=== PATIENT | male | born 1960 | race Caucasian/White ===

== ENCOUNTER 2016-05-06 14:54 | Emergency (ER) | payer OTHER ==
--- NOTE | 2016-05-06 16:42 | EDDOCDS ---
Physician Documentation [facility] Name: Ambrosio King Age: 55 yrs Sex: Male : 1960 Arrival Date: 05/06/2016 Time: 14:54 Bed Triage 2 Private MD: Corby Mendes Disposition: 05/06/16 16:34 Discharged to Home/Self Care. Impression: Edema, unspecified - OF PENIS. - Condition is Stable. - Discharge Instructions: Balanitis, Edema. - Medication Reconciliation, Local Pharmacy Hours form. - Follow up: Bennett Alvarenga; When: Call to arrange an appointment; Reason: Recheck today's complaints, Continuance of care. - Problem is new. - Symptoms are unchanged. Historical: - Allergies: No known drug Allergies; - Home Meds: 1. Cialis oral oral Unknown as needed (Last dose: 05/05/2016) 2. calcium carbonate 1,000 mg oral tab daily 3. magnesium oxide 400 mg Oral tab 4. zinc 25 mg 5. metformin 1,000 mg Oral tab 2 times per day 2 pills in PM 6. Onglyza 5 mg oral tab 1 tab once daily 7. carisoprodol 350 mg Oral tab 2 tab 8. Chantix Oral 1 tab 2 times per day - PMHx: Erectile Dysfunction; Diabetes - NIDDM: controlled; Chronic Back pain; - PSHx: Vasectomy; - Social history: Smoking status: Chewing Tobacco No barriers to communication noted, The patient speaks fluent Japanese, Speaks appropriately for age, Preferred Language: Japanese. - Family history: Not pertinent. - : The pt / caregiver states he / she is not on anticoagulants. Home medication list is obtained from the patient. - Exposure Risk Screening:: None identified. Vital Signs: 05/06 14:56 BP 149 / 93; Pulse 89; Resp 16; Temp 97.6(O); Pulse Ox 100% ; Weight 93.89 kg / 206.99 cmb lbs; Height 6 ft. 0 in. (182.88 cm); Pain 0/10; 14:56 Body Mass Index 28.07 (93.89 kg, 182.88 cm) cmb MDM: 16:37 Financial registration complete. Signatures: Karlie Olsen, Joe Diaz Tati So RN RN kr3 Kasie Nguyễn RN RN lf1 Bahman Sanchez, THI PA mo1 MTDD
--- NOTE | 2016-05-06 16:42 | EDDOCDS ---
Nurse's Notes [facility] Name: Ambrosio King Age: 55 yrs Sex: Male : 1960 Arrival Date: 05/06/2016 Time: 14:54 Bed Triage 2 Private MD: Corby Mendes Diagnosis: Edema, unspecified-OF PENIS Presentation: 05/06 15:08 Presenting complaint: Patient states: Swelling in penis that began at the base and is lf1 now moved to the sides. Pt. reports swelling began Thursday night and is not painful, pt. reports that he is unsure if swelling extends into the testicles or not. Pt reports that he takes medication for erectile dysfuction (Cialis) but that he isn't sure if he used any prior, and that this doesn't look to him like a priapism. Adult Sepsis Screening: The patient does not have new or worsening altered mentation. Patient's respiratory rate is less than 22. Systolic blood pressure is greater than 100. Patient has a qSOFA score of 0- Negative Sepsis Screen. Suicide/Homicide risk assessment- the patient denies having any suicidal and/or homicidal ideations and does not present with any other emotional, behavioral or mental health complaints. 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 Transition of care: patient was not received from another setting of care. 15:08 Acuity: MIESHA Level 3 lf1 15:08 Method Of Arrival: Walkin/Carried/Asstd lf1 Triage Assessment: 15:16 General: Appears in no apparent distress, comfortable, Behavior is cooperative. Pain: lf1 Denies pain. HIV screening NA for this visit Offered previously. Neurological: Level of Consciousness is awake, alert, Oriented to person, place, time. Cardiovascular: Chest pain is denied. Respiratory: Respiratory effort is even, unlabored. GI: Denies nausea, vomiting. : Denies burning with urination, Pt reports penile swelling. Historical: - Allergies: No known drug Allergies; - Home Meds: 1. Cialis oral oral Unknown as needed (Last dose: 05/05/2016) 2. calcium carbonate 1,000 mg oral tab daily 3. magnesium oxide 400 mg Oral tab 4. zinc 25 mg 5. metformin 1,000 mg Oral tab 2 times per day 2 pills in PM 6. Onglyza 5 mg oral tab 1 tab once daily 7. carisoprodol 350 mg Oral tab 2 tab 8. Chantix Oral 1 tab 2 times per day - PMHx: Erectile Dysfunction; Diabetes - NIDDM: controlled; Chronic Back pain; - PSHx: Vasectomy; - Social history: Smoking status: Chewing Tobacco No barriers to communication noted, The patient speaks fluent [place], Speaks appropriately for age, Preferred Language: [place]. - Family history: Not pertinent. - : The pt / caregiver states he / she is not on anticoagulants. Home medication list is obtained from the patient. - Exposure Risk Screening:: None identified. Screenin:17 Screening information is obtained from the patient. Fall risk: No risks identified. lf1 Assistance ADL's: requires no assistance with activities of daily living. Abuse/DV Screen: The patient / caregiver reports he/she is: not in a situation that causes fear, pain or injury. Nutritional screening: On diabetic diet. Advance Directives: Currently, there is no health care proxy. There is no active DNR order. There is no living will. home support is adequate. Assessment: 16:41 General: Appears in no apparent distress, comfortable, Behavior is cooperative. Awake, kr3 alert, oriented. Skin warm and dry. Moves all extremities. Respirations unlabored. No apparent distress. The patient / caregiver is instructed regarding the plan of care and ED course. Physical assessment to be completed by PA/OTTONIEL. Vital Signs: 14:56 BP 149 / 93; Pulse 89; Resp 16; Temp 97.6(O); Pulse Ox 100% ; Weight 93.89 kg; Height 6 cmb ft. 0 in. (182.88 cm); Pain 0/10; 14:56 Body Mass Index 28.07 (93.89 kg, 182.88 cm) cmb Vitals: 14:56 Log In Time: May 06, 2016 at 14:54. cmb ED Course: 14:55 Patient visited by Nataliya Johnston. cmb 14:55 Patient moved to Waiting cmb 14:56 Corby Mendes is Private Physician. cmb 14:57 Patient moved to Pre RCE cmb 15:12 Triage Initiated lf1 15:52 Patient moved to Triage 2 kr3 16:19 Bahman Sanchez PA is PHCP. mo1 16:19 Lala Monk MD is Attending Physician. mo1 16:33 Patient visited by Bahman Sanchez PA. mo1 16:34 Bennett Alvarenga is Referral Physician. mo1 16:41 Patient has correct armband on for positive identification. kr3 16:41 No IV's were initiated during this patient's visit. No procedures done that require kr3 assistance. Order Results: There are currently no results for this order. Outcome: 16:34 Discharge ordered by Provider. mo1 16:41 Discharge Assessment: patient administered narcotics - no. The following High Risk kr3 Discharge criteria are identified: None. Discharged to home ambulatory. Condition: stable. Discharge instructions given to patient, Instructed on discharge instructions, follow up and referral plans. Demonstrated understanding of instructions, Pt was receptive of discharge instructions/ teaching. No special radiology studies were completed. Property sent home with patient. 16:42 Patient left the ED. kr3 Signatures: Tati So RN RN kr3 Kasie Nguyễn RN RN lf1 Nataliya Johnston b Bahman Sanchez PA PA mo1 DIONISIOD
--- NOTE | 2016-05-08 17:43 | EDDOCDS ---
Physician Documentation [facility] Name: Ambrosio King Age: 55 yrs Sex: Male : 1960 Arrival Date: 05/06/2016 Time: 14:54 Bed Triage 2 Private MD: Corby Mendes Disposition: 05/06/16 16:34 Discharged to Home/Self Care. Impression: Edema, unspecified - OF PENIS. - Condition is Stable. - Discharge Instructions: Balanitis, Edema. - Medication Reconciliation, Local Pharmacy Hours form. - Follow up: Bennett Alvarenga; When: Call to arrange an appointment; Reason: Recheck today's complaints, Continuance of care. - Problem is new. - Symptoms are unchanged. Historical: - Allergies: No known drug Allergies; - Home Meds: 1. Cialis oral oral Unknown as needed (Last dose: 05/05/2016) 2. calcium carbonate 1,000 mg oral tab daily 3. magnesium oxide 400 mg Oral tab 4. zinc 25 mg 5. metformin 1,000 mg Oral tab 2 times per day 2 pills in PM 6. Onglyza 5 mg oral tab 1 tab once daily 7. carisoprodol 350 mg Oral tab 2 tab 8. Chantix Oral 1 tab 2 times per day - PMHx: Erectile Dysfunction; Diabetes - NIDDM: controlled; Chronic Back pain; - PSHx: Vasectomy; - Social history: Smoking status: Chewing Tobacco No barriers to communication noted, The patient speaks fluent [place], Speaks appropriately for age, Preferred Language: [place]ian. - Family history: Not pertinent. - : The pt / caregiver states he / she is not on anticoagulants. Home medication list is obtained from the patient. - Exposure Risk Screening:: None identified. Vital Signs: 05/06 14:56 BP 149 / 93; Pulse 89; Resp 16; Temp 97.6(O); Pulse Ox 100% ; Weight 93.89 kg / 206.99 cmb lbs; Height 6 ft. 0 in. (182.88 cm); Pain 0/10; 14:56 Body Mass Index 28.07 (93.89 kg, 182.88 cm) cmb MDM: 16:37 Financial registration complete. gb 18:08 [facility] Payment Agreement was scanned into [employer] and attached to record. gb 05/07 03:24 T-Sheet-- Draft Copy was scanned into [employer] and attached to record. hs2 Signatures: Karlie Olsen, Reg Reg gb Tati SoRN RN kr3 Kasie Nguyễn RN RN lf1 Bahman Sanchez PA PA mo1 Marcia Quinonez, Reg Reg hs2 The chart was reviewed and I authenticate all verbal orders and agree with the evaluation and treatment provided.Attachments: 05/06 18:08 [facility] Payment Agreement gb 05/07 03:24 T-Sheet-- Draft Copy hs2 Chart Complete MTDD
--- NOTE | 2016-05-08 17:43 | EDDOCDS ---
Physician Documentation [facility] Name: Ambrosio King Age: 55 yrs Sex: Male : 1960 Arrival Date: 05/06/2016 Time: 14:54 Bed Triage 2 Private MD: Corby Mendes Disposition: 05/06/16 16:34 Discharged to Home/Self Care. Impression: Edema, unspecified - OF PENIS. - Condition is Stable. - Discharge Instructions: Balanitis, Edema. - Medication Reconciliation, Local Pharmacy Hours form. - Follow up: Bennett Alvarenga; When: Call to arrange an appointment; Reason: Recheck today's complaints, Continuance of care. - Problem is new. - Symptoms are unchanged. Historical: - Allergies: No known drug Allergies; - Home Meds: 1. Cialis oral oral Unknown as needed (Last dose: 05/05/2016) 2. calcium carbonate 1,000 mg oral tab daily 3. magnesium oxide 400 mg Oral tab 4. zinc 25 mg 5. metformin 1,000 mg Oral tab 2 times per day 2 pills in PM 6. Onglyza 5 mg oral tab 1 tab once daily 7. carisoprodol 350 mg Oral tab 2 tab 8. Chantix Oral 1 tab 2 times per day - PMHx: Erectile Dysfunction; Diabetes - NIDDM: controlled; Chronic Back pain; - PSHx: Vasectomy; - Social history: Smoking status: Chewing Tobacco No barriers to communication noted, The patient speaks fluent [place], Speaks appropriately for age, Preferred Language: [place]. - Family history: Not pertinent. - : The pt / caregiver states he / she is not on anticoagulants. Home medication list is obtained from the patient. - Exposure Risk Screening:: None identified. Vital Signs: 05/06 14:56 BP 149 / 93; Pulse 89; Resp 16; Temp 97.6(O); Pulse Ox 100% ; Weight 93.89 kg / 206.99 cmb lbs; Height 6 ft. 0 in. (182.88 cm); Pain 0/10; 14:56 Body Mass Index 28.07 (93.89 kg, 182.88 cm) cmb MDM: 16:37 Financial registration complete. gb 18:08 [facility] Payment Agreement was scanned into [employer] and attached to record. gb 05/07 03:24 T-Sheet-- Draft Copy was scanned into [employer] and attached to record. hs2 Signatures: Karlie Olsen, Reg Reg gb Tati SoRN RN kr3 Kasie Nguyễn RN RN lf1 Bahman Sanchez PA PA mo1 Marcia Quinonez, Reg Reg hs2 The chart was reviewed and I authenticate all verbal orders and agree with the evaluation and treatment provided.Attachments: 05/06 18:08 [facility] Payment Agreement gb 05/07 03:24 T-Sheet-- Draft Copy hs2 Chart Complete MTDD
--- NOTE | 2016-05-08 17:43 | EDDOCDS ---
Nurse's Notes [facility] Name: Ambrosio King Age: 55 yrs Sex: Male : 1960 Arrival Date: 05/06/2016 Time: 14:54 Bed Triage 2 Private MD: Corby Mendes Diagnosis: Edema, unspecified-OF PENIS Presentation: 05/06 15:08 Presenting complaint: Patient states: Swelling in penis that began at the base and is lf1 now moved to the sides. Pt. reports swelling began Thursday night and is not painful, pt. reports that he is unsure if swelling extends into the testicles or not. Pt reports that he takes medication for erectile dysfuction (Cialis) but that he isn't sure if he used any prior, and that this doesn't look to him like a priapism. Adult Sepsis Screening: The patient does not have new or worsening altered mentation. Patient's respiratory rate is less than 22. Systolic blood pressure is greater than 100. Patient has a qSOFA score of 0- Negative Sepsis Screen. Suicide/Homicide risk assessment- the patient denies having any suicidal and/or homicidal ideations and does not present with any other emotional, behavioral or mental health complaints. 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 Transition of care: patient was not received from another setting of care. 15:08 Acuity: MIESHA Level 3 lf1 15:08 Method Of Arrival: Walkin/Carried/Asstd lf1 Triage Assessment: 15:16 General: Appears in no apparent distress, comfortable, Behavior is cooperative. Pain: lf1 Denies pain. HIV screening NA for this visit Offered previously. Neurological: Level of Consciousness is awake, alert, Oriented to person, place, time. Cardiovascular: Chest pain is denied. Respiratory: Respiratory effort is even, unlabored. GI: Denies nausea, vomiting. : Denies burning with urination, Pt reports penile swelling. Historical: - Allergies: No known drug Allergies; - Home Meds: 1. Cialis oral oral Unknown as needed (Last dose: 05/05/2016) 2. calcium carbonate 1,000 mg oral tab daily 3. magnesium oxide 400 mg Oral tab 4. zinc 25 mg 5. metformin 1,000 mg Oral tab 2 times per day 2 pills in PM 6. Onglyza 5 mg oral tab 1 tab once daily 7. carisoprodol 350 mg Oral tab 2 tab 8. Chantix Oral 1 tab 2 times per day - PMHx: Erectile Dysfunction; Diabetes - NIDDM: controlled; Chronic Back pain; - PSHx: Vasectomy; - Social history: Smoking status: Chewing Tobacco No barriers to communication noted, The patient speaks fluent [place], Speaks appropriately for age, Preferred Language: [place]. - Family history: Not pertinent. - : The pt / caregiver states he / she is not on anticoagulants. Home medication list is obtained from the patient. - Exposure Risk Screening:: None identified. Screenin:17 Screening information is obtained from the patient. Fall risk: No risks identified. lf1 Assistance ADL's: requires no assistance with activities of daily living. Abuse/DV Screen: The patient / caregiver reports he/she is: not in a situation that causes fear, pain or injury. Nutritional screening: On diabetic diet. Advance Directives: Currently, there is no health care proxy. There is no active DNR order. There is no living will. home support is adequate. Assessment: 16:41 General: Appears in no apparent distress, comfortable, Behavior is cooperative. Awake, kr3 alert, oriented. Skin warm and dry. Moves all extremities. Respirations unlabored. No apparent distress. The patient / caregiver is instructed regarding the plan of care and ED course. Physical assessment to be completed by PA/OTTONIEL. Vital Signs: 14:56 BP 149 / 93; Pulse 89; Resp 16; Temp 97.6(O); Pulse Ox 100% ; Weight 93.89 kg; Height 6 cmb ft. 0 in. (182.88 cm); Pain 0/10; 14:56 Body Mass Index 28.07 (93.89 kg, 182.88 cm) cmb Vitals: 14:56 Log In Time: May 06, 2016 at 14:54. cmb ED Course: 14:55 Patient visited by Nataliya Johnston. cmb 14:55 Patient moved to Waiting cmb 14:56 Corby Mendes is Private Physician. cmb 14:57 Patient moved to Pre RCE cmb 15:12 Triage Initiated lf1 15:52 Patient moved to Triage 2 kr3 16:19 Bahman Sanchez PA is PHCP. mo1 16:19 Lala Monk MD is Attending Physician. mo1 16:33 Patient visited by Bahman Sanchez PA. mo1 16:34 Bennett Alvarenga is Referral Physician. mo1 16:41 Patient has correct armband on for positive identification. kr3 16:41 No IV's were initiated during this patient's visit. No procedures done that require kr3 assistance. 17:47 Patient name changed from Ambrosio\S\D\S\Fernando\S\ to Ambrosio\S\Kvng\S\Fernando. EDMS 18:08 [facility] Payment Agreement was scanned into [employer] and attached to record. gb 05/07 03:24 T-Sheet-- Draft Copy was scanned into [employer] and attached to record. hs2 Order Results: There are currently no results for this order. Outcome: 05/06 16:34 Discharge ordered by Provider. mo1 16:41 Discharge Assessment: patient administered narcotics - no. The following High Risk kr3 Discharge criteria are identified: None. Discharged to home ambulatory. Condition: stable. Discharge instructions given to patient, Instructed on discharge instructions, follow up and referral plans. Demonstrated understanding of instructions, Pt was receptive of discharge instructions/ teaching. No special radiology studies were completed. Property sent home with patient. 16:42 Patient left the ED. kr3 Signatures: Dispatcher [employer] EDOK Karlie Olsen, Reg Reg gb Tati SoRN RN kr3 Kasie Nguyễn RN RN lf1 Nataliya Johnston cmb Bahman Sanchez PA PA mo1 Marcia Quinonez, Reg Reg hs2 Chart Complete MTDD
== END 2016-05-06 16:42 | disposition home or self-care (01) ==
LOC: M ED 14:54
DX: N50.89 Other specified disorders of the male genital organs (principal); N52.9 Male erectile dysfunction, unspecified; E11.9 Type 2 diabetes mellitus without complications; M54.9 Dorsalgia, unspecified; F17.220 Nicotine dependence, chewing tobacco, uncomplicated; Z79.899 Other long term (current) drug therapy; Z79.84 Long term (current) use of oral hypoglycemic drugs